=== PATIENT | male | born 1965 | race Hispanic/Latino ===

== ENCOUNTER 2020-08-04 16:06 | Outpatient (CLI) | payer BC | END 2020-08-04 16:07 | disposition home or self-care (01) | LOC: BICRAD 16:06 | PROVIDERS: ATTEND Family Medicine | DX: M54.5 Low back pain (principal) | CPT/HCPCS: 72100 ==

== ENCOUNTER 2020-12-27 14:34 | Inpatient (IN) | payer BC ==
[2020-12-27 15:03] LABS: Mean Corpuscular HGB CONC 32.5 g/dL (32.0-36.0); Mean Corpuscular Hemoglobin 30.9 pg (27.0-31.0); Mean Platelet Volume 7.1 fL (7.4-10.4); Platelet Count 293 thou/uL (130-400); RBC Distribution Width 11.8 % (11.5-14.5); Red Blood Cell (RBC) Count 5.19 mill/uL (4.70-6.10); White Blood Cell (WBC) Count 12.6 thou/uL (4.8-10.8)
[2020-12-27] MEDS ORDERED: Dexamethasone 10 MG/ML VIAL ONE (15:04)
[2020-12-27 15:33] LABS: Band 27 % (5-11); MDiff Complete? YES; Metamyelocyte 2 % (0-0); Monocytes 2 % (0-10); Myelocyte 2 % (0-0); Neutrophil 66 % (42-75); Platelet Morphology Comment Appears Adequate; RBC Morphology Normal; Reactive Lymphocytes 1 % (0-10)
[2020-12-27 15:38] LABS: ALT (SGPT) 17 U/L (8-55); AST (SGOT) 28 U/L (5-34); Albumin 3.5 g/dL (3.5-5.0); Alkaline Phosphatase 50 U/L (40-110); Anion Gap 17 mmol/L (10-20); BUN (Urea Nitrogen) 29 mg/dL (8.4-25.7); Bilirubin, Total 0.5 mg/dL (0.2-1.2); Calc. Creatinine Clearance 0 mL/min (70-130); Carbon Dioxide 26 mmol/L (22-29); Chloride 102 mmol/L (98-107); Globulin 3.6 g/dL (2.4-3.5); Glucose 128 mg/dL (70-105); Potassium 4.9 mmol/L (3.5-5.1); Protein, Total 7.1 g/dL (6.0-8.3); Sodium 140 mmol/L (136-145)
[2020-12-27] MEDS ORDERED: Senokot S 8.6-50 MG TAB PO PRN (16:55)
[2020-12-27] MEDS ORDERED: Ondansetron ODT 4 MG TAB PO PRN (16:55)
[2020-12-27] MEDS ORDERED: Acetaminophen 650 MG Suppository PR PRN (16:55)
[2020-12-27] MEDS ORDERED: Ondansetron PF 4 MG/2 ML Vial IVP PRN (16:55)
[2020-12-27 17:33] LABS: Actual Bicarbonate (HCO3a) 24.2 mEq/L (22-28); Analyzer IN Cardio ER; Base Excess (BEa) 0.3 mEq/L (-2.0 to +3.0); CO2 Tension 37.1 mmHg (35.0-45.0); Calcium, Ionized (arterial) 1.17 mmol/L (1.12-1.30); Carboxyhemoglobin (COHb) 0.2 gm% (0.0-3.0); Hemoglobin (Hb) 16.2 g/dL (14.0-18.0); O2 Tension (PaO2), arterial 69.9 mmHg (80.0-100.0); Potassium - ABG Lab 4.38 mmol/L (3.70-5.30); pH, Arterial 7.43 (7.35-7.45)
[2020-12-27 17:39] LABS: ALV-art Gradient 140.405 mmHg (0-20); Puncture Site RRA
[2020-12-27] MEDS ORDERED: Budesonide 0.5 MG/2 ML NEB NEB SCH (18:30)
[2020-12-27] MEDS ORDERED: Lactated Ringer's 1,000 ML IV SCH (19:30)
[2020-12-27] MEDS ORDERED: REMDESIVIR 200 MG in Sodium Chloride 0.9% 250 ML 210 ML IV SCH (20:15)
[2020-12-27] MEDS ORDERED: BARICITINIB 2 MG TAB PO SCH (21:00)
[2020-12-27] MEDS ORDERED: Albuterol 200 PUFF (6.7GM INHALER) ONE (22:15)
[2020-12-28 02:21] VITALS: BMI 24.1
[2020-12-28] MEDS: Lactated Ringer's 1,000 ML IV SCH ×3 (03:16→13:54)
[2020-12-28] MEDS: Famotidine 20 MG TAB PO SCH ×2 (03:17→08:41)
[2020-12-28] MEDS: Famotidine/PF 20 mg/2ml Vial SLOW IVP SCH ×2 (03:17→08:41)
[2020-12-28] MEDS: Acetaminophen 325 MG TAB PO PRN (03:31)
[2020-12-28 06:06] LABS: #Basophils 0.1 thou/uL (0.0-0.2); #Lymphocytes 0.4 thou/uL (1.20-3.40); #Monocytes 0.5 thou/uL (0.11-0.59); #Neutrophils 7.3 thou/uL (1.40-6.50); %Basophils 0.6 % (0.0-1.0); %Eosinophils 0.3 % (0.0-10.0); %Lymphocytes 5.2 % (21.0-51.0); %Monocytes 6.4 % (0.0-10.0); %Neutrophils 87.5 % (42.0-75.0); Hemoglobin 14.7 g/dL (14.0-18.0); Mean Corpuscular HGB CONC 34.7 g/dL (32.0-36.0); Mean Corpuscular Hemoglobin 33.1 pg (27.0-31.0); Mean Corpuscular Volume 95.3 fL (78.0-98.0); Mean Platelet Volume 7.1 fL (7.4-10.4); Platelet Count 285 thou/uL (130-400); RBC Distribution Width 11.6 % (11.5-14.5); Red Blood Cell (RBC) Count 4.45 mill/uL (4.70-6.10); White Blood Cell (WBC) Count 8.4 thou/uL (4.8-10.8)
[2020-12-28 06:30] LABS: ALT (SGPT) 14 U/L (8-55); AST (SGOT) 16 U/L (5-34); Albumin 3.4 g/dL (3.5-5.0); Alkaline Phosphatase 46 U/L (40-110); Anion Gap 15 mmol/L (10-20); BUN (Urea Nitrogen) 39 mg/dL (8.4-25.7); Bilirubin, Total 0.3 mg/dL (0.2-1.2); Calc. Creatinine Clearance 65 mL/min (70-130); Carbon Dioxide 28 mmol/L (22-29); Chloride 102 mmol/L (98-107); Globulin 2.9 g/dL (2.4-3.5); Glucose 115 mg/dL (70-105); Potassium 4.8 mmol/L (3.5-5.1); Protein, Total 6.3 g/dL (6.0-8.3); Sodium 140 mmol/L (136-145)
[2020-12-28] MEDS ORDERED: Mometasone 200 MCG/Formoterol 5 MCG 120 PUFF INHALER INH SCH (06:30)
[2020-12-28] MEDS: Enoxaparin Sodium 40 MG/0.4 ML SYRINGE SC SCH (08:40)
[2020-12-28] MEDS: Dexamethasone 4 mg/ml Vial SLOW IVP SCH (08:41)
[2020-12-28] MEDS ORDERED: BARICITINIB 2 MG TAB PO SCH (09:00)
[2020-12-28] MEDS ORDERED: Triamterene/Hydrochlorothiazid 75 mg/50 mg Tablet PO SCH (10:15)
[2020-12-28] MEDS ORDERED: Albuterol 200 PUFF (6.7GM INHALER) INH PRN (14:30)
[2020-12-28 14:34] LABS: Creatinine, Urine 60.88 mg/dL (63-166)
[2020-12-28] MEDS: Mometasone 200 MCG/Formoterol 5 MCG 120 PUFF INHALER INH SCH (15:53)
[2020-12-28] MEDS ORDERED: REMDESIVIR 100 MG in Sodium Chloride 0.9% 250 ML 230 ML IV SCH (20:15)
[2020-12-28] MEDS: Montelukast Sodium 10 mg Tablet PO SCH (20:45)
[2020-12-28] MEDS: Guaifenesin DM 100-10/5 ML UDCUP PO PRN (20:46)
[2020-12-29] MEDS: Mometasone 200 MCG/Formoterol 5 MCG 120 PUFF INHALER INH SCH ×2 (05:20→20:16)
[2020-12-29] MEDS: Lactated Ringer's 1,000 ML IV SCH ×2 (05:20→15:09)
[2020-12-29 07:04] LABS: ALT (SGPT) 13 U/L (8-55); AST (SGOT) 14 U/L (5-34); Albumin 3.2 g/dL (3.5-5.0); Alkaline Phosphatase 42 U/L (40-110); Anion Gap 13 mmol/L (10-20); BUN (Urea Nitrogen) 37 mg/dL (8.4-25.7); Bilirubin, Total 0.3 mg/dL (0.2-1.2); CRP (Inflammatory) 3.45 mg/dL (= or < 0.5); Calc. Creatinine Clearance 84 mL/min (70-130); Calcium 8.8 mg/dL (7.8-10.44); Carbon Dioxide 27 mmol/L (22-29); Chloride 104 mmol/L (98-107); Globulin 2.8 g/dL (2.4-3.5); Glucose 103 mg/dL (70-105); Potassium 4.6 mmol/L (3.5-5.1); Sodium 139 mmol/L (136-145)
[2020-12-29] MEDS: Enoxaparin Sodium 40 MG/0.4 ML SYRINGE SC SCH (08:40)
[2020-12-29] MEDS: BARICITINIB 2 MG TAB PO SCH (08:41)
[2020-12-29] MEDS: Dexamethasone 4 mg/ml Vial SLOW IVP SCH (08:41)
[2020-12-29] MEDS: Triamterene/Hydrochlorothiazid 75 mg/50 mg Tablet PO SCH (08:43)
[2020-12-29] MEDS: Guaifenesin DM 100-10/5 ML UDCUP PO PRN ×2 (15:10→20:16)
[2020-12-29] MEDS: Montelukast Sodium 10 mg Tablet PO SCH (20:16)
[2020-12-30] MEDS: Lactated Ringer's 1,000 ML IV SCH ×3 (04:54→18:23)
[2020-12-30] MEDS: Mometasone 200 MCG/Formoterol 5 MCG 120 PUFF INHALER INH SCH ×2 (04:54→19:00)
[2020-12-30 06:18] LABS: ALT (SGPT) 12 U/L (8-55); AST (SGOT) 16 U/L (5-34); Albumin 3.3 g/dL (3.5-5.0); Alkaline Phosphatase 43 U/L (40-110); Anion Gap 11 mmol/L (10-20); BUN (Urea Nitrogen) 33 mg/dL (8.4-25.7); Bilirubin, Total 0.3 mg/dL (0.2-1.2); Calc. Creatinine Clearance 76 mL/min (70-130); Calcium 8.7 mg/dL (7.8-10.44); Carbon Dioxide 31 mmol/L (22-29); Chloride 100 mmol/L (98-107); Globulin 2.7 g/dL (2.4-3.5); Glucose 87 mg/dL (70-105); Potassium 4.9 mmol/L (3.5-5.1); Sodium 137 mmol/L (136-145)
[2020-12-30] MEDS: BARICITINIB 2 MG TAB PO SCH (09:17)
[2020-12-30] MEDS: Enoxaparin Sodium 40 MG/0.4 ML SYRINGE SC SCH (09:17)
[2020-12-30] MEDS: Dexamethasone 4 mg/ml Vial SLOW IVP SCH (09:17)
[2020-12-30] MEDS: Triamterene/Hydrochlorothiazid 75 mg/50 mg Tablet PO SCH (09:22)
[2020-12-30] MEDS: Guaifenesin DM 100-10/5 ML UDCUP PO PRN ×3 (11:30→23:48)
[2020-12-30] MEDS: Acetaminophen 325 MG TAB PO PRN (20:37)
[2020-12-30] MEDS: Montelukast Sodium 10 mg Tablet PO SCH (20:38)
[2020-12-30] MEDS ORDERED: Baclofen 10 MG TAB PO SCH (23:15)
[2020-12-31] MEDS: Lactated Ringer's 1,000 ML IV SCH (05:00)
[2020-12-31] MEDS: Mometasone 200 MCG/Formoterol 5 MCG 120 PUFF INHALER INH SCH (05:52)
[2020-12-31 06:33] LABS: ALT (SGPT) 20 U/L (8-55); AST (SGOT) 30 U/L (5-34); Albumin 3.4 g/dL (3.5-5.0); Alkaline Phosphatase 45 U/L (40-110); Anion Gap 13 mmol/L (10-20); BUN (Urea Nitrogen) 34 mg/dL (8.4-25.7); Bilirubin, Total 0.4 mg/dL (0.2-1.2); Calc. Creatinine Clearance 75 mL/min (70-130); Calcium 8.9 mg/dL (7.8-10.44); Carbon Dioxide 30 mmol/L (22-29); Chloride 98 mmol/L (98-107); Globulin 2.8 g/dL (2.4-3.5); Glucose 81 mg/dL (70-105); Potassium 4.8 mmol/L (3.5-5.1); Protein, Total 6.2 g/dL (6.0-8.3); Sodium 136 mmol/L (136-145)
[2020-12-31 08:13] VITALS: BP 125/80; TEMP 97.9
[2020-12-31] MEDS: BARICITINIB 2 MG TAB PO SCH (08:42)
[2020-12-31] MEDS: Dexamethasone 4 mg/ml Vial SLOW IVP SCH (08:42)
[2020-12-31] MEDS: Triamterene/Hydrochlorothiazid 75 mg/50 mg Tablet PO SCH (08:42)
[2020-12-31] MEDS: Enoxaparin Sodium 40 MG/0.4 ML SYRINGE SC SCH (10:55)
[2020-12-31] MEDS: Guaifenesin DM 100-10/5 ML UDCUP PO PRN (17:45)
== END 2020-12-31 19:25 | disposition home or self-care (01) | DRG 871 ==
LOC: ERS 14:34 → ERHOLD 16:30 → T4-A 12-28 01:48
PROVIDERS: ADMIT Family Medicine; ATTEND Family Medicine
PROC: XW0DXM6 Introduction of Baricitinib into Mouth and Pharynx, External Approach, New Technology Group 6 (ICD-10-PCS; principal; 2020-12-27)
PROC: 3E0333Z Introduction of Anti-inflammatory into Peripheral Vein, Percutaneous Approach (ICD-10-PCS; 2020-12-27)
PROC: 8E0ZXY6 Isolation (ICD-10-PCS; 2020-12-27)
PROC: 5A0945A Assistance with Respiratory Ventilation, 24-96 Consecutive Hours, High Flow/Velocity Cannula (ICD-10-PCS; 2020-12-27)
DX: A41.89 Other specified sepsis (principal); U07.1 COVID-19; J96.01 Acute respiratory failure with hypoxia; J12.82 Pneumonia due to coronavirus disease 2019; N17.9 Acute kidney failure, unspecified; R65.20 Severe sepsis without septic shock; K21.9 Gastro-esophageal reflux disease without esophagitis; J45.909 Unspecified asthma, uncomplicated; I10 Essential (primary) hypertension; F12.10 Cannabis abuse, uncomplicated; Z83.3 Family history of diabetes mellitus; Z98.890 Other specified postprocedural states; Z79.899 Other long term (current) drug therapy; Z79.51 Long term (current) use of inhaled steroids
CPT/HCPCS: 36415; 36600; 71045; 80053; 82570; 82728; 82805; 84145; 84300; 84484; 85025; 85379; 85652; 86140; 93005; 96374; J1100; J1650; J7120

== ENCOUNTER 2021-01-12 12:12 | Outpatient (CLI) | payer BC | END 2021-01-12 12:13 | disposition home or self-care (01) | LOC: BICRAD 12:12 | PROVIDERS: ATTEND Nurse Practitioner Family | DX: B94.8 Sequelae of other specified infectious and parasitic diseases (principal) | CPT/HCPCS: 71046 ==

== ENCOUNTER 2021-01-27 10:22 | Outpatient (CLI) | payer BC | END 2021-01-27 10:23 | disposition home or self-care (01) | LOC: RAD 10:22 | PROVIDERS: ATTEND Internal Medicine Pulmonary Disease | DX: R06.00 Dyspnea, unspecified (principal); R91.8 Other nonspecific abnormal finding of lung field | CPT/HCPCS: 71046 ==